=== PATIENT | female | born 1955 | race Two or more races ===

== ENCOUNTER 2022-07-13 11:32 | Emergency (ER) | payer MEDICARE, OTHER ==
[~2022-07-13] VITALS: Ht 154.9 cm; Wt 77.1 kg
[2022-07-13 11:45] VITALS: BP 127/75
--- NOTE | 2022-07-13 11:51 | NUR ---
PT AMBULATED TO BED 04.
--- NOTE | 2022-07-13 11:56 | NUR ---
C/O OF ITCHY RASH ON ARMS, NECK AND TORSO X 4 DAYS, DENIES CHANGING DETERGENT OR FOOD. DENIES SOB. HAS NOT TAKEN BENADRYL AT HOME.
[2022-07-13] MEDS: LORATADINE 10 MG TAB PO ONE (12:41)
[2022-07-13] MEDS: predniSONE 20 MG TAB PO ONE (12:41)
--- NOTE | 2022-07-13 13:12 | NUR ---
PT STATES THE MEDICATION GIVEN HAS HELPED WITH HER ITCHINESS.
[2022-07-13] MEDS ORDERED: PRED20TA5 PO (13:37)
[2022-07-13] MEDS ORDERED: LORA10TA19 PO (13:37)
[2022-07-13 14:02] VITALS: BP 127/75
--- NOTE | 2022-07-13 14:02 | NUR ---
Patient discharged with v/s stable. Written and verbal after care instructions given and explained. Patient alert, oriented and verbalized understanding of instructions. Ambulatory with steady gait. All questions addressed prior to discharge. ID band removed. Patient advised to follow up with PMD. Rx of CLARITIN & PREDNISONE given. Patient educated on indication of medication including possible reaction and side effects. Opportunity to ask questions provided and answered.
== END 2022-07-13 14:02 | disposition home or self-care (01) ==
LOC: MED 11:32
DX: R21 Rash and other nonspecific skin eruption (principal); I10 Essential (primary) hypertension
CPT/HCPCS: 99283; J7512